=== PATIENT | male | born 1955 | race Caucasian/White ===

== ENCOUNTER 2017-05-11 08:18 | Day surgery (SDC) | payer MEDICARE, MEDICAID ==
[~2017-05-11] VITALS: Ht 165.1 cm; Wt 94.8 kg
[~2017-05-11 08:18] MED LIST: ATEN50TA41 PO; LISI5TAB7 PO; METF10002 PO; OXYB5TAB7 PO
[2017-05-11] MEDS ORDERED: MIDAZOLAM 1 MG/ML, 2ML ONE (08:44)
[2017-05-11] MEDS ORDERED: FENTANYL PF 250 MCG/5ML ONE (08:44)
[2017-05-11 09:33] VITALS: BP 137/82
[2017-05-11] MEDS ORDERED: DIVA-68 PO (09:33)
[2017-05-11] MEDS ORDERED: IBUP-1223 PO (09:33)
[2017-05-11] MEDS ORDERED: HALO2TAB PO (09:33)
[2017-05-11] MEDS ORDERED: METF10002 PO (09:33)
[2017-05-11] MEDS ORDERED: SODI56GE BC (09:33)
[2017-05-11] MEDS ORDERED: GABA-826 PO (09:33)
[2017-05-11] MEDS ORDERED: QUET50TA PO (09:33)
[2017-05-11] MEDS ORDERED: OXYB5TAB7 PO (09:33)
[2017-05-11] MEDS ORDERED: DONE5TAB7 PO (09:33)
[2017-05-11] MEDS ORDERED: LORA0.5T PO (09:33)
[2017-05-11] MEDS ORDERED: LISI40TA PO (09:33)
[2017-05-11] MEDS ORDERED: ATEN50TA41 PO (09:33)
[2017-05-11] MEDS ORDERED: LOVA10TA PO (09:33)
[2017-05-11] MEDS ORDERED: QUET400T PO (09:33)
[2017-05-11] MEDS ORDERED: ACET1TAB64 PO (09:33)
[2017-05-11] MEDS ORDERED: LACTATED RINGERS 1,000 ML IV SCH (09:56)
[2017-05-11 10:04] LABS: MICROSCOPIC INDICATED
[2017-05-11 10:14] LABS: CULTURE INDICATED? NO
[2017-05-11] MEDS ORDERED: LIDOCAINE-MPF 2% ,5ML ONE (10:15)
[2017-05-11] MEDS ORDERED: PROPOFOL 10 MG/ML, 20ML ONE (10:15)
[2017-05-11] MEDS ORDERED: CIPROFLOXACIN 400MG/200ML PMX ONE (10:15)
[2017-05-11] MEDS ORDERED: DEXAMETHASONE 4 MG/ML, 1ML ONE (10:15)
[2017-05-11] MEDS ORDERED: METOPROLOL 1 MG/ML, 5ML ONE (10:15)
[2017-05-11 10:18] LABS: ALANINE AMINOTRANSFERASE 22 U/L (12-78); ALBUMIN 3.1 g/dL (3.4-5.0); ANION GAP 6 mmol/L (5-15); CALCIUM 8.2 mg/dL (8.5-10.1); CHLORIDE 107 mmol/L (98-107)
[2017-05-11 10:21] LABS: ALKALINE PHOSPHATASE 79 U/L (45-117); BILIRUBIN,TOTAL 0.5 mg/dL (0.2-1.0); CREATININE 0.95 mg/dL (0.7-1.3); TOTAL PROTEIN 6.8 g/dL (6.4-8.2)
[2017-05-11] MEDS ORDERED: PROMETHAZINE 12.5 MG SUPP PR PRN (11:00)
[2017-05-11] MEDS ORDERED: HYDROmorphone 1 MG/ML, 1ML IV PRN (11:00)
[2017-05-11] MEDS ORDERED: MEPERIDINE/PF 25MG/0.5ML IVPush PRN (11:00)
[2017-05-11] MEDS ORDERED: OXYcodone 5 MG/5 ML ORAL.SOL UDC PO PRN (11:00)
[2017-05-11] MEDS ORDERED: hydrALAzine 20 MG/ML, 1ML IV PRN (11:00)
[2017-05-11] MEDS ORDERED: HALOPERIDOL 5 MG/ML IV ONE (11:00)
[2017-05-11] MEDS ORDERED: ALBUTEROL SULFATE 2.5 MG/3 ML NPPB PRN (11:00)
[2017-05-11] MEDS ORDERED: ACETAMINOPHEN 325 MG TABLET PO PRN (11:00)
[2017-05-11] MEDS ORDERED: PROMETHAZINE 25 MG/ML, 1ML IV PRN (11:00)
[2017-05-11] MEDS ORDERED: morphine SULFATE 10 MG/ML, 1ML IV PRN (11:00)
[2017-05-11] MEDS ORDERED: FENTANYL PF 100 MCG/2ML IV PRN (11:00)
[2017-05-11] MEDS ORDERED: LABETALOL 5MG/ML, 20ML IV PRN (11:00)
[2017-05-11] MEDS ORDERED: ONDANSETRON 2MG/ML, 2ML IV PRN (11:30)
[2017-05-11] MEDS ORDERED: OXYcodone/APAP 5/325MG TABLET PO PRN (11:30)
[2017-05-11] MEDS ORDERED: PHENAZOPYRIDINE 200 MG TABLET ONE (11:35)
[2017-05-11] MEDS ORDERED: ACETAMINOPHEN 650 MG/20.3 ML UDC ONE (11:35)
[2017-05-11] MEDS ORDERED: hydrALAzine 20 MG/ML, 1ML ONE (11:35)
[2017-05-11] MEDS ORDERED: PHENAZOPYRIDINE 200 MG TABLET PO ONE (12:00)
[2017-05-11] MEDS ORDERED: LABETALOL 5MG/ML, 20ML ONE (12:01)
== END 2017-05-11 14:32 ==
LOC: OUT 08:18
PROVIDERS: ATTEND Urology
DX: C67.9 Malignant neoplasm of bladder, unspecified (principal); I10 Essential (primary) hypertension
CPT/HCPCS: 36415; 52235; 71045; 80053; 81001; 82962; 88307; 93005; J0360; J0744; J1100; J2250; J2704; J3010; J3490